=== PATIENT | male | born 1995 | race Caucasian/White ===

== ENCOUNTER → 2022-12-31 08:24 | Outpatient (BNVA) | payer OTHER, SELFPAY | PROVIDERS: Visit Provider Orthopaedic Surgery | DX: M25.562 Pain in left knee (principal) | CPT/HCPCS: 73560; 73565 ==

== ENCOUNTER 2023-01-15 07:53 | Outpatient (CLI) | payer OTHER, SELFPAY ==
--- NOTE | 2023-01-15 08:00 | MR_ITS ---
WS: [id number] MRI LEFT KNEE HISTORY: pain COMPARISON: 12/31/2022 radiograph Anterior cruciate ligament: Intact. Posterior cruciate ligament: Intact. Medial collateral ligament: Intact. Posterior lateral corner structures: Intact. Medial menisci: Intact. Normal signal, size and shape. Lateral meniscus: Intact. Normal signal, size and shape. Extensor mechanism: Distal quadriceps tendon and patellar tendons are intact. Fluid and soft tissue: No joint effusion. No Hayes's cyst. Osseous and articular structures: Patellofemoral compartment: Normal. Medial compartment: Normal. Lateral compartment: Normal. MR/MR knee LT wo con* [id number] IMPRESSION: 1. Normal MRI LEFT knee. 2. No fracture or marrow edema. 3. No meniscal tear identified.
== END 2023-01-15 07:54 | disposition home or self-care (01) ==
PROVIDERS: Visit Provider Orthopaedic Surgery
DX: M25.562 Pain in left knee (principal)
CPT/HCPCS: 73721